=== PATIENT | female | born 1965 | race Asian ===

== ENCOUNTER 2022-07-14 17:59 | Emergency (ER) | payer OTHER ==
[~2022-07-14] VITALS: Ht 160 cm; Wt 70.0 kg
[2022-07-14] MEDS ORDERED: AMOX-277 PO (20:38)
[2022-07-14] MEDS ORDERED: ACET-1158 PO (20:38)
[2022-07-14] MEDS ORDERED: PRED20TA2 PO (20:38)
[2022-07-14 22:04] VITALS: BP 139/63
== END 2022-07-14 22:13 | disposition home or self-care (01) ==
LOC: ER 18:02
DX: S46.911A Strain of unspecified muscle, fascia and tendon at shoulder and upper arm level, right arm, initial encounter (principal); J20.9 Acute bronchitis, unspecified; Z20.822 Contact with and (suspected) exposure to COVID-19; X58.XXXA Exposure to other specified factors, initial encounter; Y93.89 Activity, other specified; Y92.89 Other specified places as the place of occurrence of the external cause; Y99.8 Other external cause status
CPT/HCPCS: 36415; 71045; 87426; 87804

== ENCOUNTER 2022-08-13 03:51 | Emergency (ER) | payer OTHER ==
[~2022-08-13] VITALS: Ht 160 cm; Wt 70.5 kg
[~2022-08-13 03:51] MED LIST: ACET-1158 PO; AMOX-277 PO; PRED20TA2 PO
[2022-08-13 04:25] VITALS: BP 136/90
[2022-08-13] MEDS ORDERED: CYCL-837 PO (05:06)
[2022-08-13] MEDS ORDERED: IBUP800T27 PO (05:06)
[2022-08-13] MEDS ORDERED: AZITTAB PO (05:06)
== END 2022-08-13 06:05 | disposition home or self-care (01) ==
LOC: ER 03:51
DX: S29.012A Strain of muscle and tendon of back wall of thorax, initial encounter (principal); J06.9 Acute upper respiratory infection, unspecified; Z79.899 Other long term (current) drug therapy; Z90.49 Acquired absence of other specified parts of digestive tract; X58.XXXA Exposure to other specified factors, initial encounter; Y93.89 Activity, other specified; Y92.89 Other specified places as the place of occurrence of the external cause; Y99.8 Other external cause status

== ENCOUNTER 2024-05-22 15:30 | Emergency (ER) | payer OTHER ==
[~2024-05-22] VITALS: Ht 157.5 cm; Wt 72.2 kg
[~2024-05-22 15:30] MED LIST changes: -ACET-1158 PO; +ACET500T58 PO; -AMOX-277 PO; +AMOX875T4 PO; +AZITTAB PO; +CYCL-837 PO; +IBUP-1456 PO
[2024-05-22 15:55] VITALS: BP 150/75
[2024-05-22 15:58] VITALS: PULSE 75; RESP 18; O2SAT 99
--- NOTE | 2024-05-22 16:08 | DVH ---
EXAM: XY L FOOT 3 VIEW XRAY CLINICAL HISTORY: injury to great toe r/o fx COMPARISON: None TECHNIQUE: XY L FOOT 3 VIEW XRAY Findings/Impression: 3 views of the left foot. There is no evidence of an acute fracture, dislocation, blastic, or lytic lesions. No radiopaque foreign bodies. Mild soft tissue edema.
[2024-05-22] MEDS ORDERED: IBUP-1454 PO (16:25)
--- NOTE | 2024-05-22 16:26 | ED.PDOC ---
Musculoskeletal HPI Comments 58-year-old female complaining of left great toe pain. Patient states she was stubbed her toe on a table while at the [facility] earlier today. States that nail did up lift. Bleeding controlled prior to arrival. Patient states she was seen by the exhibit builder at the [facility]. They advised her to come into the emergency department. Chief Complaint: Lower Extremity Time Seen by MD: 15:49 Primary Care Provider: OOA Reviewed Notes: Nurses Notes Allergies: Coded Allergies: NO KNOWN ALLERGIES (Unverified , 08/13/22) Home Meds Active Scripts Azithromycin (Zithromax Z-Grant) 250 Mg Tab, 250 MG PO DAILY, #1 PACK 0 Refills Prov:GRADY BAUTISTA 08/13/22 Ibuprofen (Ibuprofen) 800 Mg Tab, 1 TAB PO TID PRN, #30 TAB 0 Refills Prov:GRADY BAUTISTA 08/13/22 Cyclobenzaprine Hcl (Cyclobenzaprine Hcl) 5 Mg Tab, 1 TAB PO QPM PRN, #14 TAB 0 Refills Prov:GRADY BAUTISTA 08/13/22 Acetaminophen (Acetaminophen) 500 Mg Tab, 500 MG PO QIDP, #30 TAB 0 Refills Prov:GRADY BAUTISTA 07/14/22 Prednisone (Prednisone) 20 Mg Tab, 20 MG PO BID for 5 Days, #10 MG 0 Refills Prov:GRADY BAUTISTA 07/14/22 Amoxicillin & Pot Clavulanate (Amoxicillin/Potassium Cla) 875 Mg Tab, 1 TAB PO BID for 7 Days, #14 TAB 0 Refills Prov:GRADY BAUTISTA 07/14/22 Information Source: Patient Mode of Arrival: Ambulatory Location: Left Extremity Location: Great Toe Past Medical History PAST MEDICAL HISTORY: Denies Surgical History: Appendectomy ACCOUNTING MANAGER CONTROLLER History: No Pertinent ACCOUNTING MANAGER CONTROLLER History Family History Family History: Unknown Social History Smoker: Non-Smoker Alcohol: Denies ETOH Use Drugs: Denies Drug Use Lives In: Home Constitutional: denies: chills, diaphoresis, fatigue, fever, malaise, sweats, weakness, others EENTM: denies: blurred vision, double vision, ear bleeding, ear discharge, ear drainage, ear pain, ear ringing, eye pain, eye redness, hearing loss, mouth pain, mouth swelling, nasal discharge, nose bleeding, nose congestion, nose pain, photophobia, tearing, throat pain, throat swelling, voice changes, others Respiratory: denies: cough, hemoptysis, orthopnea, SOB at rest, shortness of breath, SOB with excertion, stridor, wheezing, others Cardiovascular: denies: chest pain, dizzy spells, diaphoresis, Dyspnea on exertion, edema, irregular heart beat, left arm pain, lightheadedness, palpitations, PND, syncope, others Gastrointestinal: denies: abdomen distended, abdominal pain, blood streaked bowels, constipated, diarrhea, dysphagia, difficulty swallowing, hematemesis, melena, nausea, poor appetite, poor fluid intake, rectal bleeding, rectal pain, vomiting, others Genitourinary: denies: abnormal vagina bleeding, burning, dyspareunia, dysuria, flank pain, frequency, hematuria, incontinence, pain, , vagina discharge, urgency, others Neurological: denies: dizziness, fainting, headache, left sided numbness, left sided weakness, numbness, paresthesia, pre-existing deficit, right sided numbness, right sided weakness, seizure, speech problems, tingling, tremors, weakness, others Musculoskeletal: reports: others (Toe pain); denies: back pain, gout, joint pain, joint swelling, muscle pain, muscle stiffness, neck pain Integumetry: denies: bruises, change in color, change in hair/nails, dryness, laceration, lesions, lumps, rash, wounds, others Allergic/Immunocompromised: denies: Difficulty Healing, Frequent Infections, Hives, Itching, others Hematologic/Lymphatic: denies: anemia, blood clots, easy bleeding, easy bruising, swollen glands, others Physical Exam General Appearance: No Apparent Distress, Normal HEENT: Normal ENT Inspection, Pharynx Normal, TMs Normal Neck: Full Range of Motion, Non-Tender, Normal, Normal Inspection Respiratory: Chest Non-Tender, Lungs Clear, No Accessory Muscle Use, No Respiratory Distress, Normal Breath Sounds Cardiovascular: No Edema, No JVD, No Murmur, No Gallop, Normal Peripheral Pulses, Regular Rate/Rhythm Breast Exam: Deferred Gastrointestinal: No Organomegaly, Non Tender, No Pulsatile Mass, Normal Bowel Sounds, Soft Genitalia: Deferred Pelvic: Deferred Rectal: Deferred Extremities: No calf tenderness, Normal capillary refill, Normal inspection, Normal range of motion, Non-tender, No pedal edema Musculoskeletal : Location: Left Extremity Location: Great Toe (Avulsion of the left great toe nail. Partial avulsion, cuticle still intact. Bleeding controlled.) Apperance: Normal Neurologic: Alert, area forester II-XII nml as Tested, No Motor Deficits, Normal Affect, Normal Mood, No Sensory Deficits Cerebellar Function: Normal Reflexes: Normal Skin: Dry, Normal Color, Warm Lymphatic: No Adenopathy Was a procedure done? Was a procedure done?: No Differential Diagnosis EXT Differential Diagnosis: Fracture, Sprain, Other (Nail avulsion) X-Ray, Labs, Meds, VS Vital Signs Date Time Temp Pulse Resp B/P (MAP) Pulse Ox O2 Delivery O2 Flow Rate FiO2 05/22/24 15:58 75 18 99 Room Air 05/22/24 15:55 75 18 150/75 (100) 99 05/22/24 15:42 98.7 75 18 150/75 (100) 99 X-Ray, Labs, Meds, VS Comment Imaging: X-rays and CT scans were reviewed and interpreted by this provider, imaging shows no fractures and no pathological disease. Pending radiology review. Laboratory: Labs reviewed and interpreted by this provider. No significant abnormalities noted. Patient has prior medical visits reviewed. Med reconciliation performed Vital signs reviewed Time of 1ST Reevaluation: 16:25 Reevaluation 1ST: Improved Patient Education/Counseling: Diagnosis, Treatment, Need For Follow Up (Patient advised to follow-up in the emergency room in the next 24 to 48 hours if symp toms do not improve. Advised follow-up with PCP in the next 3 to 5 days. Patient verbalized understanding. ) Family Education/Counseling: Diagnosis Departure 1 Departure Time of Disposition: 16:24 Impression: Primary Impression: Toenail avulsion Qualified Codes: S91.209A - Unspecified open wound of unspecified toe(s) with damage to nail, initial encounter Disposition: HOME / SELF CARE / HOMELESS Condition: Fair e-Prescriptions Ibuprofen (Ibuprofen) 600 Mg Tab 1 TAB PO TID, #40 TAB Prov: LEIGHANN CARABALLO 05/22/24 Discharged With: Self Critical Care Note Critical Care Time?: No Stability Stability form required: No Heart Score Heart Score: Heart Score Response (Comments) Value History N/A 0 EKG N/A 0 Age N/A 0 Risk Factors N/A 0 Troponin N/A 0 Total 0 LEIGHANN CARABALLO SLASHER May 22, 2024 16:26
== END 2024-05-22 16:59 | disposition home or self-care (01) ==
LOC: ER 15:30
DX: S91.202A Unspecified open wound of left great toe with damage to nail, initial encounter (principal); Z79.899 Other long term (current) drug therapy; Z90.49 Acquired absence of other specified parts of digestive tract; X58.XXXA Exposure to other specified factors, initial encounter; Y93.89 Activity, other specified; Y92.89 Other specified places as the place of occurrence of the external cause; Y99.8 Other external cause status
CPT/HCPCS: 73630

== ENCOUNTER 2024-07-06 08:54 | Emergency (ER) | payer MEDICAID, OTHER ==
[~2024-07-06] VITALS: Ht 157.5 cm; Wt 66.8 kg
[~2024-07-06 08:54] MED LIST changes: +IBUP-1454 PO
--- NOTE | 2024-07-06 09:31 | DVH ---
XY CHEST TWO VIEWS ROUTINE CLINICAL HISTORY: cough COMPARISON: Chest radiograph 07/14/2022 TECHNIQUE: Frontal and lateral view of the chest was obtained FINDINGS: Lines and Tubes: None Lungs: No focal consolidation. Pleura: No effusion. No pneumothorax. Cardiomediastinal contours: Unremarkable Bones: No acute osseous abnormality. IMPRESSION: 1. No radiographic evidence of acute cardiopulmonary disease. HS:Y
[2024-07-06 10:25] VITALS: BP 124/75; PULSE 98; RESP 18; TEMP 98.5; O2SAT 96
[2024-07-06 11:09] LABS: Rapid Influenza A Positive (Negative)
[2024-07-06 11:10] LABS: COVID19 ANTIGEN SOFIA FIA NEGATIVE (NEGATIVE); Rapid Influenza B Negative (Negative)
[2024-07-06] MEDS ORDERED: PROM1SOL4 PO (11:37)
[2024-07-06] MEDS ORDERED: IBUP-1455 PO (11:37)
[2024-07-06] MEDS ORDERED: ACET500T58 PO (11:37)
[2024-07-06] MEDS ORDERED: OSEL75CA5 PO (11:37)
--- NOTE | 2024-07-06 11:37 | ED.PDOC ---
History of Present Illness HPI Comments 67-year-old male with a history of hypertension, hyperlipidemia, enlarged prostate presents with for same symptoms of myalgia, runny nose, nonproductive cough for two days. Denies persistent chest pain, shortness of breath, leg swelling Denies history of asthma nor any breathing conditions Denies history of pneumonia Denies recent international travel parents Chief Complaint: Flu like Time Seen by MD: 09:10 Past Medical History PAST MEDICAL HISTORY: Denies Surgical History: Appendectomy BOBBIN TRUCKER History: No Pertinent BOBBIN TRUCKER History Family History Family History: Unknown Social History Smoker: Non-Smoker Alcohol: Denies ETOH Use Drugs: Denies Drug Use Lives In: Home X-Ray, Labs, Meds, VS Vital Signs Date Time Temp Pulse Resp B/P (MAP) Pulse Ox O2 Delivery O2 Flow Rate FiO2 07/06/24 10:25 98.5 98 18 124/75 (91) 96 98.5 07/06/24 10:25 98 18 96 Room Air 07/06/24 09:06 98.5 98 18 124/75 (91) 96 Lab Test 07/06/24 09:18 Range/Units Influenza Type A Antigen Positive Negative Influenza Type B Antigen Negative Negative SARS-CoV-2 Antigen (Rapid) Negative NEGATIVE Departure 1 Departure Time of Disposition: 11:36 Impression: Primary Impression: Influenza A Disposition: 01 HOME / SELF CARE / HOMELESS Condition: Stable e-Prescriptions Promethazine-Dm (Promethazine Dm 6.25-15 mg/5Ml) 1 Cecilia Cecilia 5 ML PO TID for 10 Days, #150 ML 0 Refills Prov: MADHU DANIELS INVENTORY CONTROL MANAGER 07/06/24 Acetaminophen (Acetaminophen) 500 Mg Tab 500 MG PO Q4HP PRN for 10 Days, #50 TAB 0 Refills Prov: MADHU DANIELS INVENTORY CONTROL MANAGER 07/06/24 Ibuprofen Micronized (Ibuprofen) 800 Mg Tab 800 MG PO TID, #10 TAB 0 Refills Prov: MADUH DANIELS INVENTORY CONTROL MANAGER 07/06/24 Oseltamivir Phosphate (Tamiflu) 75 Mg Cap 1 CAP PO BID for 5 Days, #10 CAP 0 Refills Prov: MADHU DANIELS INVENTORY CONTROL MANAGER 07/06/24 MADHU DANIELS INVENTORY CONTROL MANAGER Jul 06, 2024 11:37
== END 2024-07-06 11:37 | disposition home or self-care (01) ==
LOC: ER 08:54
DX: J10.1 Influenza due to other identified influenza virus with other respiratory manifestations (principal); Z90.49 Acquired absence of other specified parts of digestive tract; Z20.822 Contact with and (suspected) exposure to COVID-19
CPT/HCPCS: 36415; 71046; 87426; 87804